=== PATIENT | female | born 1985 | race Caucasian/White ===

== ENCOUNTER → 2016-11-17 | Outpatient (CLI) | payer BC | END | disposition disaster alternative care site (69) | LOC: GLAB 15:35 | DX: Z32.00 Encounter for pregnancy test, result unknown (principal) ==

== ENCOUNTER → 2016-12-03 | Outpatient (CLI) | payer BC ==
[2016-12-03 12:12] LABS: BASOPHIL % 0.2 %; EOSINOPHIL % 0.8 %; HEMATOCRIT 38.7 % (33.0-46.0); HEMOGLOBIN 12.4 g/dL (11.0-15.0); IMMATURE GRANULOCYTE % 0.2 %; LYMPHOCYTE # 1.4 K/uL (0.8-4.0); LYMPHOCYTE % 29.4 %; MCH 29.2 pg (27.0-34.0); MCV 91.3 fl (83.0-98.0); MONOCYTE # 0.5 K/uL (0.0-1.0); MONOCYTE % 10.6 %; MPV 9.7 fl (9.4-12.4); NEUTROPHIL # (ANC) 2.9 K/uL (1.8-7.8); NEUTROPHIL % 58.8 %; NRBC % 0 /100WBC (0-0.00); PLATELET COUNT 217 K/uL (150-450); RBC 4.24 M/uL (3.50-5.00); RDW-CV 12.1 % (11.9-14.6); WBC 4.9 K/uL (4.0-11.0)
== END | disposition disaster alternative care site (69) ==
LOC: GLAB 11:30
PROVIDERS: Obstetrics & Gynecology
DX: R19.03 Right lower quadrant abdominal swelling, mass and lump (principal)